=== PATIENT | female | born 2000 | race Two or more races ===

== ENCOUNTER 2020-07-19 19:52 | Emergency (ER) | payer OTHER ==
[~2020-07-19] VITALS: Ht 167.6 cm; Wt 68.0 kg
[2020-07-19 22:30] VITALS: BP 139/95
== END 2020-07-20 00:09 | disposition home or self-care (01) ==
LOC: ER 19:52
DX: M79.10 Myalgia, unspecified site (principal); M25.511 Pain in right shoulder; X50.1XXA Overexertion from prolonged static or awkward postures, initial encounter; Y93.89 Activity, other specified; Y92.89 Other specified places as the place of occurrence of the external cause; Y99.0 Civilian activity done for income or pay
CPT/HCPCS: 73030